=== PATIENT | female | born 1980 | race Caucasian/White ===

== ENCOUNTER 2017-01-17 08:34 | Day surgery (SDC) | payer BC ==
[~2017-01-17] VITALS: Ht 160 cm; Wt 74.0 kg
[2017-01-17] VITALS (10 sets, daily range): BP systolic 90–123; BP diastolic 53–88; PULSE 64–80; TEMP 36.7–37.2; O2SAT 97–100; Ht 160 cm; Wt 74.0 kg
[2017-01-17] MEDS ORDERED: CYCL5TAB PO (09:41)
[2017-01-17] MEDS ORDERED: ALPR-411 PO (09:41)
[2017-01-17] MEDS ORDERED: ONDA4TAB46 PO (09:41)
[2017-01-17] MEDS ORDERED: meloxicam PO (09:41)
[2017-01-17] MEDS ORDERED: vitamin d PO (09:41)
[2017-01-17] MEDS ORDERED: OXYC-57 PO (09:41)
[2017-01-17] MEDS ORDERED: topamax PO (09:41)
--- NOTE | 2017-01-17 10:51 | Discharge Instructions ---
Discharge Instructions Procedure Procedure Date: Jan 17, 2017. Reason for visit: Chronic Fatigue, Generalized Weakness, Cognitive. Discharge Discharge Date: Jan 17, 2017. Discharge Diagnosis: ACTIVITY RECOMMENDATIONS: * Rest today. * Resume regular activity in one day. MEDICATIONS: * May take Tylenol or Ibuprofen as needed for pain. DIET: * Resume previous diet. SPECIAL CARE INSTRUCTIONS: Call your doctor if: * Temperature above 101 degrees F. * Pain not relieved by pain medicine ordered. * Increased drainage or redness from incision. * Notify your doctor with any questions or concerns. Call your doctor or go to the nearest Emergency Department if you experience: * Increased chest pain or shortness of breath. FOLLOW UP VISIT: Follow-up with Referring Physician as scheduled. Instructions Activity Recommendations: No limitations, Additional Limitations Return to School/Work: no limitations Recommended Home Diet: Resume Previous Diet Allergies Coded Allergies: No Known Allergies (Unverified , 01/17/17) Turner Gomez Recommendations: Call your doctor if: * Temperature above 101 degrees * Pain not relieved by pain medicine ordered * There is increased drainage or redness from any incision * You have any unanswered questions or concerns. Your Doctors Instructions noted above were prepared by provider Jose Ortiz. Patient Signature Section: Patient Instructions Signature Page Marsha Hinds Patient (or Guardian) Signature/Date: I have read and understand the instructions given to me by my caregivers. Caregiver/RN/Doctor Signature/Date: The above-named patient and/or guardian has received patient instructions on this date. + Original Patient Signature Page (only) stays with chart. Please make copy for patient.
--- NOTE | 2017-01-17 10:53 | DIAGNOSTIC IMAGING REPORT ---
FLUOROSCOPICALLY GUIDED LUMBAR PUNCTURE CLINICAL HISTORY: Chronic fatigue. Generalized weakness. FLUOROSCOPY TIME: 0.3 minutes. A single fluoroscopic spot image. PROCEDURE: The procedure, risks and benefits were discussed with the patient including the risk of spinal headache, bleeding and infection. The patient agreed to the procedure and informed written consent was obtained. The procedure was performed by Dr. Ortiz following a timeout. The left L4-L5 interlaminar space was targeted. Skin overlying the space was prepped and draped in the usual sterile fashion and local anesthesia was achieved with 1% lidocaine. Under intermittent fluoroscopic guidance, a 20-gauge x 3 1/2 in. Sprotte needle was inserted into the thecal sac. A total of 10 cc of clear, colorless cerebral spinal fluid was obtained and spread amongst 4 vials. The patient tolerated the procedure well. There were no immediate complications. The specimens were sent to the laboratory at the request of the referring physician. IMPRESSION: Successful fluoroscopic guided lumbar puncture with removal of 10 cc of clear, colorless cerebral spinal fluid. No immediate complications. Electronically signed by: Jose Ortiz M.D. 01/17/2017 10:52 AM Dictated Date/Time: 01/17/2017 10:50 AM
[2017-01-17] MEDS ORDERED: ACETAMINOPHEN 500 MG TAB PO PRN (11:00)
[2017-01-17 11:16] LABS: CSF APPEARANCE CLEAR; CSF COLOR COLORLESS; CSF XANTHOCHROMIC NO XANTHOCHROMIA
[2017-01-17] MEDS ORDERED: ACETAMINOPHEN 500 MG TAB PO ONE (12:10)
[2017-01-22 09:26] LABS: LYME DNA PCR CSF OR SYNOVIAL Not detected (Not Detected); LYME DNA SOURCE CSF; LYME IGG CSF NO BANDS DETECTED; LYME IGM CSF NO BANDS DETECTED
[2017-01-22 21:32] LABS: ALBUMIN 4.3 g/dL (3.7-5.1); IGG CSF 2.1 mg/dL (0.8-7.7); IGG SERUM 672 mg/dL (694-1618); MYELIN BASIC PROTEIN 663 <2.0 mcg/L (0.0-4.0)
== END 2017-01-17 14:44 | disposition home or self-care (01) ==
LOC: C.ACU 08:34
PROVIDERS: ATTEND Psychiatry & Neurology Neurology
DX: M62.838 Other muscle spasm (principal); R53.82 Chronic fatigue, unspecified; R53.1 Weakness; R51 Headache; M54.12 Radiculopathy, cervical region; E55.9 Vitamin D deficiency, unspecified; R41.89 Other symptoms and signs involving cognitive functions and awareness; G47.33 Obstructive sleep apnea (adult) (pediatric); D55.9 Anemia due to enzyme disorder, unspecified; M25.50 Pain in unspecified joint; F41.8 Other specified anxiety disorders; F17.210 Nicotine dependence, cigarettes, uncomplicated; Z79.899 Other long term (current) drug therapy